=== PATIENT | male | born 1950 | race Caucasian/White ===

== ENCOUNTER → 2017-04-15 | Outpatient (CLI) | payer BC ==
[~2017-04-15] MED LIST: IOPAMIDOL 370 MG/ML 200 ML INFUS..BTL INJ ONE; SODIUM CHLORIDE 0.9% 100 ML 100 ML ONE
[2017-04-15 15:06] LABS: BLOOD UREA NITROGEN 15 mg/dL (7-26); BUN/CREATININE RATIO 16 (6-25); CREATININE, SERUM 0.96 mg/dL (0.72-1.25); EST GLOMERULAR FILTRATION RATE > 60 ML/MIN (60-)
--- NOTE | 2017-04-15 16:59 | Diagnostic Imaging Report ---
EXAM: CTA of the Thoracic Aorta WITH Contrast INDICATION: \[id number] \[id number] \S\[id number] COMPARISON: None. TECHNIQUE: Multi-detector CT technology was employed. CTA Gated axial imaging of the chest was performed after the administration of IV contrast. IV CONTRAST: 100 mL Isovue-370 ORAL CONTRAST: None COMPLICATIONS: None RADIATION DOSE: Total DLP: 785.15 mGy*cm Estimated effective dose: (DLP x 0.015 x size factor) mSv CTDIvol has been reviewed. It is below the limits set by the Radiation Protocol Committee (RPC). For optimization of anatomic evaluation, multiplanar reconstruction, maximum intensity projections, and advanced 3-D off-line postprocessing were performed on a dedicated stand-alone workstation under the direct supervision of the interpreting physician. FINDINGS: Potential study limitations: None. LINES/ TUBES: None. VASCULAR WITH ADVANCED 3-D OFF-LINE POSTPROCESSING: Aortic valve morphology is trileaflet and contains no calcifications. The thoracic aorta is normal in course and contour. There is no acute aortic pathology, such as dissection or contained rupture. Aortic plaques: Minimal. Bovine arch anatomy. All of the arch branch vessels appear widely patent in their proximal portions. Environmental Protection Geologist dimensions of the thoracic aorta are as follows: 3 cm at the aortic annulus 4.7 cm at the sinuses of Valsalva (the sinotubular junction is preserved) 3.5 cm at the mid ascending aorta 2.7 cm at the mid transverse arch 2.8 cm at the proximal descending thoracic aorta 2.7 cm at the diaphragmatic hiatus. LUNGS AND AIRWAYS: Lungs are clear. Nonspecific 0.5 cm right lower lobe nodule or fissural node. Airways are patent. PLEURA: The pleural spaces are clear.. HEART AND MEDIASTINUM: 0.8 cm right thyroid hypodense nodule. No mediastinal, hilar or axillary lymphadenopathy. The main pulmonary artery measures 3.1 cm which is slightly above the normal limits. The cardiac chambers demonstrate normal atrioventricular and ventriculoarterial concordance, and systemic and pulmonary venous return. The cardiac chambers are normal in size. The coronary arteries have normal origins and courses. There are no distinct coronary calcifications identified, though this study was not optimized for coronary artery evaluation. There is no pericardial effusion. LIMITED ABDOMEN: The limited images of the upper abdomen reveal no abnormalities of the visualized organs. 2.2 cm left renal cyst. Additional left renal hypodensity is too small to characterize. BONES: Unremarkable. Degenerative changes of the visualized spine. IMPRESSION: Dilatation of aortic root, at the sinus of Valsalva, measuring 4.7 cm , otherwise no acute thoracic aortic pathology. Nonspecific 0.5 cm right lower lobe nodule or fissural lymph node. Without risk factors, no follow-up is necessary. With risk factors, follow-up with low-dose chest CT in one year is recommended. Signed by: Dr. Gokul Ponce MD on 04/15/2017 4:56 PM
== END ==
LOC: CT 13:52
PROVIDERS: ATTEND Internal Medicine Cardiovascular Disease
DX: I71.2 Thoracic aortic aneurysm, without rupture (principal)
CPT/HCPCS: 36415; 71275; 82565; 84520; Q9967

== ENCOUNTER → 2017-10-12 | Outpatient (CLI) | payer MEDICARE, BC ==
--- NOTE | 2017-10-12 17:38 | Diagnostic Imaging Report ---
History: Back pain Comparison studies: None Technique: Sagittal T1, T2 and IR, axial T2 with and without fat sat and axial spin density oblique Intravenous contrast: None Findings: Number of lumbar vertebral bodies: 5 . Soft tissues: No significant T2 hyperintense inflammatory changes . Paraspinal muscles: Fatty infiltrated at L5-S1 Lower thoracic cord: The conus medullaris is borderline low lying at the L2-L3 level. Cauda equina:No masses. No arachnoiditis . Vertebrae/discs: No fractures, infection or neoplasm Scattered subcentimeter T1 hyperintense focal fatty deposits are nonspecific Degenerative changes: T12-L1: Mildly degenerated disc (narrowed and hyperintense on T2). Patent spinal canal and foramina. No disc herniation L1-L2: Moderately degenerated disc with Modic type I inflammatory changes along the endplates on the left T2) Mild spinal canal stenosis due to a disc bulge. Patent foramina. No disc herniation. L2-L3: Mildly degenerated disc, worse on the left (narrowed and increased in T2 signal). Mild spinal canal stenosis due to a disc bulge. No significant foraminal stenosis. No disc herniation L3-L4: Moderately degenerated disc. Patent spinal canal. No significant foraminal stenosis in spite of a disc bulge. No disc herniation. L4-L5: Moderately degenerated disc worst on the right Mild spinal canal stenosis and foraminal stenosis, moderate right, mild left due to a disc bulge, end plate osteophytes and facet arthrosis. No evidence herniation. L5-S1: Moderately degenerated disc bilaterally Patent spinal canal. Mild bilateral foraminal stenosis due to a disc bulge and facet arthrosis. IMPRESSION: 1. Degenerated discs from T12 through S1, worse on the left at L2-3 and on the right at L4-5. Modic type I endplate inflammatory changes only present on the left at L2-3. 2. Degenerative spinal canal stenosis is mild at L1-L2 and L2-3 and at L4 L5. 3. Degenerative foraminal stenosis is moderate right, mild left at L4-5 and mild bilaterally at L5-S1 due to disc bulges and facet arthrosis. 4. No disc herniations. Preliminary report dictated at 10/12/2017 12:[address] Berrios. Signed by: Dr. Corbin Anders M.D. on 10/12/2017 5:34 PM
== END ==
LOC: MRI 07:54
PROVIDERS: ATTEND Neurological Surgery
DX: M54.16 Radiculopathy, lumbar region (principal)
CPT/HCPCS: 72148

== ENCOUNTER → 2019-02-26 | Outpatient (CLI) | payer MEDICARE, BC ==
--- NOTE | 2019-02-26 13:08 | Diagnostic Imaging Report ---
CT MAXIO FAC/PARANAS WO HISTORY: Right eye pain, blurry vision COMPARISON: None. TECHNIQUE: Axial CT images through the face were obtained without contrast. Coronal/sagittal reformations were created. One or more of the following dose reduction techniques were used: Automated exposure control, adjustment of the mA and/or kV according to patient size, and/or utilization of iterative reconstruction technique. DISCUSSION: No acute fracture is seen. Bilateral mandibular rami screws are partially visualized. Mild to moderate atlantoaxial arthrosis is present. Subtle fat stranding is seen throughout the right orbit. Approximately 0.6 cm intraconal right orbital soft tissue mass is seen along the posterior medial right globe. The right superior ophthalmic vein is mildly enlarged relative to the left. Associated mildly tortuous vessel is seen along the right superior extraconal space. The orbits are otherwise intact. Intraorbital contents are otherwise grossly unremarkable. The paranasal sinuses are clear. Mild generalized cerebral volume loss is partially visualized. Mild carotid siphon calcifications are present. Otherwise, the visualized soft tissues and intracranial compartment are grossly unremarkable. IMPRESSION: 1. Approximately 0.6 cm intraconal right orbital mass along the posterior medial right globe could be a hemangioma or other vascular malformation/vascular lesion. The right superior ophthalmic vein is mildly enlarged. Additional, associated mildly tortuous vessel is seen along the right superior extraconal space. 2. Mild fat stranding throughout the right orbit is likely due to nonspecific edema. 3. Otherwise, unremarkable orbits. 4. No acute osseous abnormalities in the face. Further evaluation with MRI of the orbits (without and with contrast) is recommended if clinically feasible. Signed by: Dr. Nathan Lopez M.D. on 02/26/2019 1:04 PM
== END ==
LOC: CT 11:19
PROVIDERS: ATTEND Ophthalmology
DX: H57.11 Ocular pain, right eye (principal); R51 Headache; H05.89 Other disorders of orbit; R93.89 Abnormal findings on diagnostic imaging of other specified body structures
CPT/HCPCS: 70486